=== PATIENT | female | born 1930 | race Caucasian/White ===

== ENCOUNTER 2018-03-18 21:21 | Emergency (ER) | payer MEDICARE ==
[~2018-03-18] VITALS: Ht 162.6 cm; Wt 99.2 kg
[2018-03-18 21:32] VITALS: BP 162/81; PULSE 63; RESP 18; TEMP 97.6; O2SAT 96
[2018-03-18] MEDS ORDERED: WHEA1POW9 PO (22:16)
[2018-03-18] MEDS ORDERED: DORZ2SOL15 EACH EYE (22:16)
[2018-03-18] MEDS ORDERED: ALAVTAB PO (22:16)
[2018-03-18] MEDS ORDERED: LOSA25TA PO (22:16)
[2018-03-18] MEDS ORDERED: BIOTCAP PO (22:16)
[2018-03-18] MEDS ORDERED: ALIG4CAP PO (22:16)
[2018-03-18] MEDS ORDERED: MULTTAB67 PO (22:16)
[2018-03-18] MEDS ORDERED: NEXI20CA PO (22:16)
[2018-03-18] MEDS ORDERED: LATA0.002 EACH EYE (22:16)
[2018-03-18] MEDS ORDERED: FLUT1SPR5 EACH NARE (22:16)
--- NOTE | 2018-03-18 23:37 | RADRPT ---
EXAM DATE: 03/18/2018 11:31 PM EDT AGE/SEX: 87 years / Female INDICATIONS: Pain in right shoulder status post fall. CLINICAL DATA: This is the patient's initial encounter. Patient reports that signs and symptoms have been present for 1 day and indicates a pain score of 6/10. MEDICAL/SURGICAL HISTORY: None. None. COMPARISON: No prior exams available for comparison. FINDINGS: Moderate hypertrophy of the acromioclavicular joint. Marked spurring of the glenohumeral joint. 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 Calcification of the deltoid insertion Electronically signed by: Blas Naranjo MD 03/18/2018 11:35 PM EDT
--- NOTE | 2018-03-18 23:39 | RADRPT ---
EXAM DATE: 03/18/2018 11:31 PM EDT AGE/SEX: 87 years / Female INDICATIONS: Pain in right knee status post fall. CLINICAL DATA: This is the patient's initial encounter. Patient reports that signs and symptoms have been present for 1 day and indicates a pain score of 5/10. MEDICAL/SURGICAL HISTORY: None. None. COMPARISON: No prior exams available for comparison. FINDINGS: There is linear lucency in the lateral half of the patella. On the AP film it almost appears to be a fracture but on the oblique film it looks like a bipartite patella. However expected joint effusion w hich there is none. There is mild spurring of the joint space medially CONCLUSION: Lucency of the lateral patella, fracture versus bipartite patella. Spurring along the patellar tendon Electronically signed by: Blas Naranjo MD 03/18/2018 11:38 PM EDT
[2018-03-19] MEDS ORDERED: MOBI15TA PO (00:17)
--- NOTE | 2018-03-19 00:18 | PD ---
HPI Chief Complaint: Fall Time Seen by Provider: 00:12 Travel History International Travel<30 days: No Contact w/Intl Traveler<30days: No Traveled to known affect area: No History of Present Illness HPI The patient is an 87-year-old female that states he fell at about 6 PM today and injured her right knee and right shoulder. She denies hitting her head and has no neck pain and no loss of consciousness. The pain is a 6/10 in the right knee which is the most painful. This is a sharp pain. PFSH Past Medical History Cancer: Yes (Mouth) Diabetes: Yes Patient Takes Glucophage: No Diminished Hearing: No Glaucoma: Yes Hypertension: Yes Medical other: Yes (Cataracts, Macular degeneration) Tetanus Vaccination: > 5 Years Influenza Vaccination: Yes ?: Not Past Surgical History Cholecystectomy: Yes Eye Surgery: Yes Hysterectomy: Yes Other Surgery: Yes (Lymphnode removal jaw and neck) Social History Alcohol Use: No Tobacco Use: No Substance Use: No Allergies-Medications (Allergen,Severity, Reaction): Coded Allergies: codeine (Verified Allergy, Severe, Hallucinations, 03/18/18) metolazone (Verified Allergy, Severe, 03/18/18) palpitations Reported Meds & Prescriptions Reported Meds & Active Scripts Active Reported Align (Lactobacillus Rhamnosus (GG)) 4 Mg (1 Billion Cell) Cap 4 Mg PO DAILY Benefiber (Wheat Dextrin) 3 Gram/3.8 Gram Powder 1 Pack PO DIRECTED Biotin 5 Mg Cap 5 Mg PO DAILY Flonase Nasal [place] (Fluticasone Nasal [place]) 50 Mcg/Act [place] 50 Mcg EACH NARE BID Multiple Vitamin 1 Tab 1 Tab PO DAILY Alavert Allergy Sinus 12 HR (Loratadine-Pseudoephedrine 12 HR) 5-120 Mg Tab 1 Tab PO BID Nexium (Esomeprazole DR) 20 Mg Capdr 20 Mg PO DAILY Latanoprost Opth Drops (Latanoprost) 0.005% Drops 1 Drop EACH EYE HS Refrigerate until opened. Dorzolamide-Timolol Opth Drops 22.3-6.8 Mg/Ml Soln 1 Drop EACH EYE BID Losartan (Losartan Potassium) 25 Mg Tab 25 Mg PO DAILY Review of Systems Except as stated in HPI: all other systems reviewed are Neg Physical Exam Narrative GENERAL: Well-nourished, alert and oriented, slightly obese patient in slight apparent distress with her right knee and right shoulder discomfort. Her vital signs show blood pressure 162/81 but are otherwise normal.. SKIN: Focused skin assessment warm/dry. HEAD: Normocephalic. EYES: No scleral icterus. No injection or drainage. NECK: Supple, trachea midline. No JVD or lymphadenopathy. CARDIOVASCULAR: Regular rate and rhythm without murmurs, gallops, or rubs. RESPIRATORY: Breath sounds equal bilaterally. No accessory muscle use. GASTROINTESTINAL: Abdomen soft, non-tender, nondistended. MUSCULOSKELETAL: No cyanosis, or edema. Right shoulder shows diffuse tenderness over the shoulder without any deformity or erythema or contusion. The right knee shows collaterals, drawer, Angel intact and there is no patellar tenderness whatsoever. The tenderness as above the patella on the patellar tendon and below the patella on the anterior tibial area. BACK: Nontender without obvious deformity. No CVA tenderness. Data Data Last Documented VS Vital Signs Date Time Temp Pulse Resp B/P (MAP) Pulse Ox O2 Delivery O2 Flow Rate FiO2 03/18/18 21:32 97.6 63 18 162/81 (108) 96 Orders Orders Shoulder, Complete (>2vws) (03/18/18 ) Knee, Complete (4vws) (03/18/18 ) MDM Medical Decision Making Medical Screen Exam Complete: Yes Emergency Medical Condition: Yes Medical Record Reviewed: Yes Interpretation(s) X-rays of the right shoulder show osteoarthritis of the glenohumeral joint and calcification of the deltoid insertion. X-rays of the right knee show no fracture there is a bipartite patella and spurring along the patellar tendon. Differential Diagnosis Fracture shoulder, dislocation shoulder, fracture knee, contusion knee, subluxation patella Narrative Course The patient has contusion of the right knee and right shoulder. She has arthritis in both places. She will be given Mobic daily. She lives in [place] and she should follow-up with her primary care physician in [place] when she gets back in early March. Diagnosis Primary Impression: Contusion of right shoulder Additional Impression: Contusion of right knee Med/Other Pt SpecificInfo: Prescription(s) given Scripts Meloxicam (Mobic) 15 Mg Tab 15 MG PO DAILY, #30 TAB 0 Refills Prov: Shakeel Segundo MD 03/19/18 Disposition: 01 DISCHARGE HOME Condition: Stable Shakeel Segundo MD Mar 19, 2018 00:18
[2018-03-19] MEDS ORDERED: MELOXICAM 15 MG TAB PO ONE (00:30)
[2018-03-19 00:43] VITALS: BP 156/62
== END 2018-03-19 00:44 | disposition home or self-care (01) ==
LOC: PHEFT 21:21
DX: S40.011A Contusion of right shoulder, initial encounter (principal); S80.01XA Contusion of right knee, initial encounter; M19.011 Primary osteoarthritis, right shoulder; E11.9 Type 2 diabetes mellitus without complications; H40.9 Unspecified glaucoma; H35.30 Unspecified macular degeneration; I10 Essential (primary) hypertension; W19.XXXA Unspecified fall, initial encounter; Z85.818 Personal history of malignant neoplasm of other sites of lip, oral cavity, and pharynx
CPT/HCPCS: 73030; 73564; 99284